=== PATIENT | male | born 1955 | race Caucasian/White ===

== ENCOUNTER 2016-10-17 19:23 | Emergency (ER) | payer OTHER ==
[~2016-10-17] VITALS: Ht 182.9 cm; Wt 86.6 kg
[~2016-10-17 19:23] MED LIST: ASPI81 PO; DIOV160T6 PO; GLUCTAB OR; LIPI80TA16 PO; PIOG45 PO
[2016-10-17 19:32] VITALS: BP 137/87; PULSE 98; RESP 16; TEMP 98.2; O2SAT 98
[2016-10-17] MEDS ORDERED: METF500T PO (20:08)
[2016-10-17] MEDS ORDERED: ACTO45TA8 PO (20:08)
[2016-10-17] MEDS ORDERED: GABA300C5 PO (20:08)
[2016-10-17] MEDS ORDERED: DIOV160T6 PO (20:08)
[2016-10-17] MEDS ORDERED: ASPI81CH CHEW (20:08)
[2016-10-17] MEDS ORDERED: LIPI80TA PO (20:08)
--- NOTE | 2016-10-17 20:11 | PD ---
HPI Chief Complaint: General Weakness Time Seen by Provider: 19:41 Travel History International Travel<30 days: No Contact w/Intl Traveler<30days: No Traveled to known affect area: No History of Present Illness HPI This 61-year-old male says he is feeling dizzy and tired at times. He has a history of type 2 diabetes. He has developed neuropathy and has a lot of burning pain in his legs. He was recently started on gabapentin and his been feeling lightheaded and dizzy. He's also on Lipitor. He says that he has less energy than usual. PFSH Past Medical History Hx Anticoagulant Therapy: Yes (81 MG ASA) Arthritis: No Anxiety: Yes Cancer: No Cardiovascular Problems: Yes High Cholesterol: Yes Chest Pain: No Congestive Heart Failure: No Cerebrovascular Accident: No Coronary Artery Disease: Yes Diabetes: Yes Diminished Hearing: No Hypertension: Yes Immune Disorder: No Implanted Vascular Access Dvce: Yes Musculoskeletal: Yes Neurologic: Yes Psychiatric: Yes Reproductive: No Respiratory: No Migraines: No Seizures: No PNEUMOCCOCAL Vaccine (Year): 2 Past Surgical History Abdominal Surgery: Yes (HERNIA) Body Medical Devices: ORTHOPEDIC INPLANTS IN PT NECK Oral Surgery: Yes (DENTAL IMPLANTS) Social History Alcohol Use: No Tobacco Use: Yes (06/26 PPD) Substance Use: Yes (HX OF MARIJUANA; PT DENIES RECENT USE) Allergies-Medications (Allergen,Severity, Reaction): Coded Allergies: Penicillin (Verified Adverse Reaction, Intermediate, 10/17/16) PT STATES HIS MOM TOLD HIM HE WAS ALLERGIC Reported Meds & Prescriptions Reported Meds & Active Scripts Active Reported Gabapentin 300 Mg Cap 300 Mg PO HS Diovan (Valsartan) 160 Mg Tab 160 Mg PO DAILY Actos (Pioglitazone HCl) 45 Mg Tab 45 Mg PO DAILY Lipitor (Atorvastatin Calcium) 80 Mg Tab 80 Mg PO HS Metformin (Metformin HCl) 500 Mg Tab 500 Mg PO BIDPC With meals Aspirin 81 Mg Chew 81 Mg CHEW DAILY Review of Systems General / Constitutional: No: Fever, Chills Eyes: No: Diploplia, Blurred Vision HENT: No: Headaches, Congestion Cardiovascular: No: Chest Pain or Discomfort, Palpitations Respiratory: No: Cough Gastrointestinal: No: Vomiting, Diarrhea Genitourinary: No: Frequency Musculoskeletal: Positive: Myalgias, Weakness, Pain Skin: No Rash Neurologic: No: Weakness, Focal Abnormalities Endocrine: No: Heat Intolerance, Cold Intolerance Hematologic/Lymphatic: No: Easy Bruising Physical Exam Narrative GENERAL: Well-developed male SKIN: Focused skin assessment warm/dry. HEAD: Atraumatic. Normocephalic. EYES: Pupils equal and round. No scleral icterus. No injection or drainage. ENT: No nasal bleeding or discharge. Mucous membranes pink and moist. NECK: Trachea midline. No JVD. CARDIOVASCULAR: Regular rate and rhythm. No murmur appreciated. RESPIRATORY: No accessory muscle use. Clear to auscultation. Breath sounds equal bilaterally. GASTROINTESTINAL: Abdomen soft, non-tender, nondistended. Hepatic and splenic margins not palpable. MUSCULOSKELETAL: No obvious deformities. No clubbing. No cyanosis. No edema. NEUROLOGICAL: Awake and alert. No obvious cranial nerve deficits. Motor grossly within normal limits. Normal speech. PSYCHIATRIC: Appropriate mood and affect; insight and judgment normal. Data Data Last Documented VS Vital Signs Date Time Temp Pulse Resp B/P Pulse Ox O2 Delivery O2 Flow Rate FiO2 10/17/16 19:32 98.2 98 16 137/87 98 Orders Complete Blood Count With Diff (10/17/16 20:08) Comprehensive Metabolic Panel (10/17/16 20:08) Creatine Kinase (Cpk) (10/17/16 20:08) Labs Laboratory Tests Test 10/17/16 20:20 White Blood Count 10.8 TH/MM3 Red Blood Count 5.51 MIL/MM3 Hemoglobin 15.8 GM/DL Hematocrit 48.0 % Mean Corpuscular Volume 87.1 FL Mean Corpuscular Hemoglobin 28.8 PG Mean Corpuscular Hemoglobin 33.0 % Concent Red Cell Distribution Width 13.9 % Platelet Count 210 TH/MM3 Mean Platelet Volume 8.9 FL Neutrophils (%) (Auto) 67.1 % Lymphocytes (%) (Auto) 25.1 % Monocytes (%) (Auto) 5.5 % Eosinophils (%) (Auto) 1.4 % Basophils (%) (Auto) 0.9 % Neutrophils # (Auto) 7.2 TH/MM3 Lymphocytes # (Auto) 2.7 TH/MM3 Monocytes # (Auto) 0.6 TH/MM3 Eosinophils # (Auto) 0.2 TH/MM3 Basophils # (Auto) 0.1 TH/MM3 CBC Comment DIFF FINAL Differential Comment Sodium Level 140 MEQ/L Potassium Level 3.6 MEQ/L Chloride Level 104 MEQ/L Carbon Dioxide Level 30.4 MEQ/L Anion Gap 6 MEQ/L Blood Urea Nitrogen 15 MG/DL Creatinine 1.10 MG/DL Estimat Glomerular Filtration 68 ML/MIN Rate Random Glucose 148 MG/DL Calcium Level 9.2 MG/DL Total Bilirubin 0.5 MG/DL Aspartate Amino Transf 20 U/L (AST/SGOT) Alanine Aminotransferase 27 U/L (ALT/SGPT) Alkaline Phosphatase 120 U/L Total Creatine Kinase 100 U/L Total Protein 7.7 GM/DL Albumin 3.7 GM/DL MDM Medical Decision Making Medical Screen Exam Complete: Yes Emergency Medical Condition: Yes Medical Record Reviewed: Yes Differential Diagnosis Differential includes adverse reaction to gabapentin, adverse reaction to lovastatin, electrolyte imbalance, anemia Narrative Course CBC and electrolytes are normal. I suspect his dizziness is related to his gabapentin use. He is stable for discharge Diagnosis Primary Impression: Adverse drug reaction Qualified Code: T88.7XXA - Adverse drug reaction, initial encounter Additional Instructions: stop Gabapentin. Disposition: DISCHARGE HOME Condition: Stable Wilfredo Braun MD Oct 17, 2016 20:11
[2016-10-17 20:29] LABS: AUTOMATED NEUTROPHIL # 7.2 TH/MM3 (1.8-7.7); BASOPHIL # 0.1 TH/MM3 (0-0.2); BASOPHIL % 0.9 % (0.0-2.0); EOSINOPHIL # 0.2 TH/MM3 (0-0.4); EOSINOPHIL % 1.4 % (0.0-4.0); HEMO FLAGS DIFF FINAL; LYMPH % 25.1 % (9.0-44.0); LYMPHOCYTE # 2.7 TH/MM3 (1.0-4.8); MEAN CELL VOLUME 87.1 FL (80.0-100.0); MEAN CORPUSCULAR HEMOGLOBIN 28.8 PG (27.0-34.0); MONO % 5.5 % (0.0-8.0); NEUT % 67.1 % (16.0-70.0); PLATELET COUNT 210 TH/MM3 (150-450); RED BLOOD COUNT 5.51 MIL/MM3 (4.50-5.90); RED CELL DISTRIBUTION WIDTH 13.9 % (11.6-17.2); WHITE BLOOD COUNT 10.8 TH/MM3 (4.0-11.0)
[2016-10-17 20:45] LABS: CHLORIDE 104 MEQ/L (98-107); POTASSIUM 3.6 MEQ/L (3.5-5.1); SODIUM (NA) 140 MEQ/L (136-145)
[2016-10-17 20:49] LABS: ANION GAP 6 MEQ/L (5-15); BICARBONATE 30.4 MEQ/L (21.0-32.0); BLOOD UREA NITROGEN 15 MG/DL (7-18)
[2016-10-17 20:52] LABS: ALT (GPT) 27 U/L (12-78); AST (GOT) 20 U/L (15-37); GLOMERULAR FILTRATION RATE 68 ML/MIN (>89)
[2016-10-17 20:53] LABS: TOTAL BILIRUBIN ADULT 0.5 MG/DL (0.2-1.0)
[2016-10-17 20:55] LABS: ALKALINE PHOSPHATASE 120 U/L (45-117)
[2016-10-17 21:12] LABS: CREATINE KINASE 100 U/L (39-308)
[2016-10-17 21:38] VITALS: BP 136/66
== END 2016-10-17 21:42 | disposition home or self-care (01) ==
LOC: PHED 19:23
DX: T42.6X5A Adverse effect of other antiepileptic and sedative-hypnotic drugs, initial encounter (principal); R42 Dizziness and giddiness; Z79.82 Long term (current) use of aspirin; E78.00 Pure hypercholesterolemia, unspecified; I10 Essential (primary) hypertension; F17.210 Nicotine dependence, cigarettes, uncomplicated
CPT/HCPCS: 80053; 82550; 85025; 99284

== ENCOUNTER 2017-05-22 12:14 | Emergency (ER) | payer OTHER ==
[~2017-05-22] VITALS: Ht 182.9 cm; Wt 83.5 kg
[~2017-05-22 12:14] MED LIST changes: +ACTO45TA15 PO; +ASPI-516 CHEW; -ASPI81 PO; +GABA300C5 PO; -GLUCTAB OR; +LIPI80TA PO; -LIPI80TA16 PO; +METF500T PO; -PIOG45 PO
[2017-05-22 12:17] VITALS: BP 122/59; PULSE 110; RESP 18; TEMP 98.5; O2SAT 97
--- NOTE | 2017-05-22 12:39 | PD ---
HPI Chief Complaint: Fall Time Seen by Provider: 12:28 Travel History International Travel<30 days: No Contact w/Intl Traveler<30days: No Traveled to known affect area: No History of Present Illness HPI 61-year-old male presents to the emergency department for evaluation after falling today while playing sports. He states that he fell hitting his face against the concrete. He denies any loss of consciousness. He reports some mild neck pain. He denies any chest pain or abdominal pain. No nausea, vomiting, diarrhea. Patient has a small laceration to the upper nose as well as a laceration to the mid forehead. He states his tetanus immunization was 2 years ago. He currently rates the pain 2/10, aching, no radiation. He denies taking anticoagulants. He does take a baby aspirin daily. Denies any hip or pelvic pain. He has been ambulatory since the fall. No exacerbating or alleviating factors. Moderate severity. PFSH Past Medical History Hx Anticoagulant Therapy: Yes (81 MG ASA) Arthritis: No Anxiety: Yes Cancer: No Cardiovascular Problems: Yes High Cholesterol: Yes Chest Pain: No Congestive Heart Failure: No Cerebrovascular Accident: No Coronary Artery Disease: Yes Diabetes: Yes Patient Takes Glucophage: Yes Diminished Hearing: No Gastrointestinal Disorders: No Hypertension: Yes Immune Disorder: No Implanted Vascular Access Dvce: Yes Musculoskeletal: Yes Neurologic: Yes Psychiatric: Yes Reproductive: No Respiratory: No Migraines: No Seizures: No PNEUMOCCOCAL Vaccine (Year): 2 Past Surgical History Abdominal Surgery: Yes (HERNIA) Body Medical Devices: ORTHOPEDIC INPLANTS IN PT NECK Oral Surgery: Yes (DENTAL IMPLANTS) Social History Alcohol Use: No Tobacco Use: Yes (1 06/26 PPD) Substance Use: No (HX OF MARIJUANA; PT DENIES RECENT USE) Allergies-Medications (Allergen,Severity, Reaction): Coded Allergies: penicillin G (Unverified Adverse Reaction, Intermediate, 05/22/17) PT STATES HIS MOM TOLD HIM HE WAS ALLERGIC Reported Meds & Prescriptions Reported Meds & Active Scripts Active Reported Diazepam 5 Mg Tab 5 Mg PO BID PRN Gabapentin 300 Mg Cap 300 Mg PO HS Diovan (Valsartan) 160 Mg Tab 160 Mg PO DAILY Actos (Pioglitazone HCl) 45 Mg Tab 45 Mg PO DAILY Lipitor (Atorvastatin Calcium) 80 Mg Tab 80 Mg PO HS Metformin (Metformin HCl) 500 Mg Tab 500 Mg PO BIDPC With meals Aspirin 81 Mg Chew 81 Mg CHEW DAILY Review of Systems Except as stated in HPI: all other systems reviewed are Neg Physical Exam Narrative GENERAL: Well-nourished, well-developed male patient, afebrile. SKIN: Focused skin assessment warm/dry. Patient has 4 cm laceration to the mid forehead. He also has a small 1.5 cm laceration to the upper nose. HEAD: Normocephalic. EYES: No scleral icterus. No injection or drainage. PERRLA. ENT: Mucosa pink and moist. No erythema or exudates. No uvular edema. No uvular , palatal, or tonsillar deviation. Airway patent. Nasal turbinates appear normal without nasal blood, purulent drainage or septal hematoma. Bilateral tympanic membranes are clear without erythema or perforation. NECK: Supple, trachea midline. No JVD or lymphadenopathy. CARDIOVASCULAR: Regular rate and rhythm without murmurs, gallops, or rubs. RESPIRATORY: Breath sounds equal bilaterally. No accessory muscle use. Lungs sounds are clear to auscultation. GASTROINTESTINAL: Abdomen soft, non-tender, nondistended. MUSCULOSKELETAL: No cyanosis, or edema. BACK: No obvious deformity. No CVA tenderness. He has mild tenderness over midline cervical spine. Data Data Last Documented VS Vital Signs Date Time Temp Pulse Resp B/P (MAP) Pulse Ox O2 Delivery O2 Flow Rate FiO2 05/22/17 12:17 98.5 110 18 122/59 (80) 97 Orders Orders Lidocai-Epi 1%-1:100,000 Inj (Xylocaine- (05/22/17 12:45) Ct Brain W/O Iv Contrast(Rout) (05/22/17 ) Ct Cerv Spine W/O Contrast (05/22/17 ) Ct Facial Bones W/O Iv Cont (05/22/17 ) Apply Cervical Collar (05/22/17 12:34) MDM Medical Decision Making Medical Screen Exam Complete: Yes Emergency Medical Condition: Yes Medical Record Reviewed: Yes Interpretation(s) Last Impressions Maxillofacial CT 05/22/17 0000 Signed Impressions: Service Date/Time: Monday, May 22, 2017 12:59 - CONCLUSION: 1. Small soft tissue laceration over the frontal bone centrally with no associated fracture. 2. Minimal chronic sinus disease in a posterior left ethmoid air cell as well as the left maxillary antra. Sharif España MD Head CT 05/22/17 0000 Signed Impressions: Service Date/Time: Monday, May 22, 2017 12:59 - CONCLUSION: 1. Isolated , minimal chronic sinusitis in a posterior left ethmoid air cell. 2. Otherwise negative. No acute fracture or intracranial trauma. Sharif España MD Cervical Spine CT 05/22/17 0000 Signed Impressions: Service Date/Time: Monday, May 22, 2017 12:59 - CONCLUSION: 1. Bony fixation at C5-6 with anterior mechanical fixation at C5 and C7. 2. Degenerative disc disease most prominent at C2-3 through C4-5 with uncovertebral ridging. The right posterior ridges at C4-5 encroaches on the right side of the spinal canal and may irritate the right side of the cord. 3. Foraminal narrowing bilaterally at C3-4 and C4-5. This may be severe enough to kev the exiting C4 nerve roots bilaterally. 4. No acute fracture. Sharif España MD Differential Diagnosis Laceration versus closed head injury versus intracranial abnormality versus cervical strain versus cervical fracture versus contusion Narrative Course 61-year-old male presents to the emergency department after he fell face forward onto concrete. Patient gives verbal consent for laceration repair. CT of the brain, cervical spine, facial bones are ordered and pending. CT of the brain shows no acute fracture or intracranial hemorrhage. CT of the cervical spine shows chronic changes, no acute fracture. CT of the facial bones shows no acute fracture. Lacerations are repaired. Patient is given proper wound care instructions. He' ll be discharged with a prescription for Keflex. He verbalizes agreement and understanding. The patient was discharged in stable condition with instructions, including return instructions and follow up instructions. Procedures Procedure Narrative LACERATION LOCATION: Forehead LENGTH: 4 cm NUMBER OF STITCHES/KASSY: 10 simple interrupted sutures REPAIR: The area of the laceration was prepped with Betadine and sterilely draped. The laceration was infiltrated with .1% lidocaine with epinephrine. The wound was copiously irrigated and explored without evidence of foreign body , tendon injury or neurovascular injury. The wound was closed using 5-0 Prolene. This was a - layer repair. A sterile dressing was applied. The patient was advised to keep the dressing clean and dry. Patient tolerated the procedure well. LACERATION LOCATION: nose LENGTH: 1.5 cm NUMBER OF STITCHES/KASSY: 3 simple interrupted sutures REPAIR: The area of the laceration was prepped with Betadine and sterilely draped. The laceration was infiltrated with 1% lidocaine with epinephrine. The wound was copiously irrigated and explored without evidence of foreign body, tendon injury or neurovascular injury. The wound was closed using 5-0 Prolene. This was a single layer repair. A sterile dressing was applied. The patient was advised to keep the dressing clean and dry. Patient tolerated the procedure well. Diagnosis Primary Impression: Facial laceration Qualified Codes: S01.81XA - Laceration without foreign body of other part of head, initial encounter Additional Impression: Closed head injury Qualified Codes: S09.90XA - Unspecified injury of head, initial encounter Referrals: Primary Care Physician call for appointment Patient Instructions: Care For Your Stitches (ED), Facial Laceration (ED), General Instructions Additional Instructions: Clean lacerations twice daily with soap and water and apply [id number] antibiotic ointment. Take antibiotic as directed until gone to prevent infection. No swimming or hot tubs until lacerations are healed. Suture removal in 5 days. You may follow up with your primary care physician or return to the emergency department for this. Follow-up with your primary care physician. Return to the emergency department for any acute worsening of symptoms. Med/Other Pt SpecificInfo: Prescription(s) given Scripts Cephalexin (Keflex) 500 Mg Cap 500 MG PO Q8H for Infection for 5 Days, #15 CAP 0 Refills Prov: Yasemin Cunningham 05/22/17 Disposition: 01 DISCHARGE HOME Condition: Stable Yasemin Cunningham May 22, 2017 12:39
[2017-05-22] MEDS ORDERED: DIAZ5TAB PO (12:42)
[2017-05-22] MEDS ORDERED: LIDOCAINE 1%/EPINEPHrine 1:100,000 SOLN 20 ML VIAL INFIL ONE (12:45)
--- NOTE | 2017-05-22 13:27 | RADRPT ---
EXAM DATE/TIME: 05/22/2017 12:59 [facility] COMPARISON: CT BRAIN W/O CONTRAST, January 22, 2011, 20:15. INDICATIONS : Fell on face. Laceration to nose. Headache. RADIATION DOSE: 62.36 CTDIvol (mGy) MEDICAL HISTORY : Hypertension. Anticoagulant therapy. Diabetes. SURGICAL HISTORY : Fusion, cervical. Hernia. ENCOUNTER: Initial ACUITY: 1 day PAIN SCALE: 2/10 LOCATION: cranial TECHNIQUE: Multiple contiguous axial images were obtained of the head. Using automated exposure control and adj ustment of the mA and/or kV according to patient size, radiation dose was kept as low as reasonably a chievable to obtain optimal diagnostic quality images. DICOM format image data is available electro nically for review and comparison. FINDINGS: CEREBRUM: The ventricles are normal for age. No evidence of midline shift, mass lesion, hemorrhage or acute in farction. No extra-axial fluid collections are seen. POSTERIOR FOSSA: The cerebellum and brainstem are intact. The 4th ventricle is midline. The cerebellopontine angle i s unremarkable. EXTRACRANIAL: The visualized portion of the orbits is intact. Isolated mucoperiosteal thickening in a posterior eth moid air cell on the left. SKULL: The calvaria is intact. No evidence of skull fracture. CONCLUSION: 1. Isolated, minimal chronic sinusitis in a posterior left ethmoid air cell. 2. Otherwise negative. No acute fracture or intracranial trauma. Sharif España MD on May 22, 2017 at 13:23 Board Certified Radiologist. This report was verified electronically.
--- NOTE | 2017-05-22 13:47 | RADRPT ---
EXAM DATE/TIME: 05/22/2017 12:59 [facility] COMPARISON: No previous studies available for comparison. INDICATIONS : Fell on face. Laceration to nose. Left sided neck pain. RADIATION DOSE: 26.70 CTDIvol (mGy) MEDICAL HISTORY : Hypertension. Anticoagulant therapy. Diabetes. SURGICAL HISTORY : Fusion, cervical. Hernia. ENCOUNTER: Initial ACUITY: 1 day PAIN SCALE: 2/10 LOCATION: neck TECHNIQUE: Volumetric scanning of the cervical spine was performed. Multiplanar reconstructions in the sagittal, coronal and oblique axial planes were performed. Using automated exposure control and adjustment o f the mA and/or kV according to patient size, radiation dose was kept as low as reasonably achievable to obtain optimal diagnostic quality images. DICOM format image data is available electronically f or review and comparison. FINDINGS: Sagittal and coronal reconstructions show multilevel degenerative disc disease with vertebral ridging most prominent from C2-3 through C4-5. Anterior fixation at C5 and C7 with bony fixation at C5-6. Mi nimal grade 1 retrolisthesis of C3 on 4 and C4 on 5. Associated uncovertebral ridging at these 2 leve ls encroaches on the spinal canal, most severe at the C4-5 level. Vertebral body heights are maintain ed without fracture. C2-C3: Actually directed uncovertebral ridging. Spinal canal and neural foramina are patent. C3-C4: Diffuse uncovertebral ridging with some encroachment on the anterior epidural space but no significan t spinal stenosis. There is some narrowing of both neural foramina as well which may compromise the e xiting C4 nerve roots. C4-C5: Uncovertebral ridging most prominent anteriorly and right posteriorly. Right posterior spur encroache s on the lateral recess and could compromise the right side of the cord. There is narrowing of both n eural foramina but I believe the C5 nerve roots escape compression. C5-C6: Anterior and bony fixation. Spinal canal and neural foramina remain adequate C6-C7: Anterior fixation. Spinal canal and neural foramina are adequate. C7-T1: The bony spinal canal is normal in size. No evidence of disc bulge or herniation. The neural forami na are bilaterally patent. CONCLUSION: 1. Bony fixation at C5-6 with anterior mechanical fixation at C5 and C7. 2. Degenerative disc disease most prominent at C2-3 through C4-5 with uncovertebral ridging. The righ t posterior ridges at C4-5 encroaches on the right side of the spinal canal and may irritate the righ t side of the cord. 3. Foraminal narrowing bilaterally at C3-4 and C4-5. This may be severe enough to kev the exiting C4 nerve roots bilaterally. 4. No acute fracture. Sharif España MD on May 22, 2017 at 13:25 Board Certified Radiologist. This report was verified electronically.
--- NOTE | 2017-05-22 13:50 | RADRPT ---
EXAM DATE/TIME: 05/22/2017 12:59 [facility] COMPARISON: No previous studies available for comparison. INDICATIONS : Fell on face. Laceration to nose. RADIATION DOSE: 25.68 CTDIvol (mGy) MEDICAL HISTORY : Hypertension. Anticoagulant therapy. Diabetes. SURGICAL HISTORY : Fusion, cervical. Hernia. ENCOUNTER: Initial ACUITY: 1 day PAIN SCORE: 2/10 LOCATION: nasion TECHNIQUE: Volumetric scanning of the facial bones was performed. Using automated exposure control and adjustme nt of the mA and/or kV according to patient size, radiation dose was kept as low as reasonably achiev able to obtain optimal diagnostic quality images. DICOM format image data is available electronicall y for review and comparison. FINDINGS: ORBITS: The orbital and infraorbital osseous structures are intact. The retroconal structures have a normal configuration. No radiopaque foreign bodies are seen. NASAL BONE: The nasal bone and maxillary spine are intact ZYGOMATIC ARCHES: Symmetric without evidence of fracture. SINUSES: Small retention cyst in the left maxillary antra. Opacification of a posterior left ethmoid air cell. NASAL CAVITY: The nasal septum is intact and midline. The lacrimal ducts are intact. SOFT TISSUES: No radiopaque foreign bodies seen. Mild soft tissue irregularity over the frontal bone centrally heather acteristic of a small laceration.. INTRACRANIAL: No intracranial air seen. CRIBIFORM PLATE: Grossly intact. CONCLUSION: 1. Small soft tissue laceration over the frontal bone centrally with no associated fracture. 2. Minimal chronic sinus disease in a posterior left ethmoid air cell as well as the left maxillary a ntra. Sharif España MD on May 22, 2017 at 13:46 Board Certified Radiologist. This report was verified electronically.
[2017-05-22] MEDS ORDERED: CEPH-460 PO (13:58)
== END 2017-05-22 14:19 | disposition home or self-care (01) ==
LOC: PHED 12:14 → PHEFT 14:19
DX: S01.81XA Laceration without foreign body of other part of head, initial encounter (principal); S09.90XA Unspecified injury of head, initial encounter; S01.21XA Laceration without foreign body of nose, initial encounter; W19.XXXA Unspecified fall, initial encounter; Y93.79 Activity, other specified sports and athletics; I10 Essential (primary) hypertension; E78.00 Pure hypercholesterolemia, unspecified; I25.10 Atherosclerotic heart disease of native coronary artery without angina pectoris; E11.9 Type 2 diabetes mellitus without complications; Z88.0 Allergy status to penicillin; F17.210 Nicotine dependence, cigarettes, uncomplicated; Z79.82 Long term (current) use of aspirin; Z79.84 Long term (current) use of oral hypoglycemic drugs; Z79.899 Other long term (current) drug therapy
CPT/HCPCS: 12002; 70450; 70486; 72125